=== PATIENT | female | born 1990 | race Caucasian/White ===

== ENCOUNTER → 2019-06-29 | Outpatient (CLI) | payer BC ==
--- NOTE | 2019-06-29 12:46 | KCIC ---
EXAM: Obstetrics sonogram. HISTORY: anatomy survey. TECHNIQUE: Sonographic imaging of a gravid uterus was performed. COMPARISON: None. FINDINGS: There is a single intrauterine fetus in cephalic presentation with a heart rate of 150 bpm. There is normal body motion. The stomach, kidneys, bladder, spine, brain, facial profile and extremities and heart are unremarkable. There is a three-vessel umbilical cord with normal insertion. The cervix is closed and measures 4.4 cm in length. The amniotic fluid index is normal at 10.1 cm. There is an anterior placenta with a suspected accessory lobe covering the cervix. The biparietal diameter is 4.06 cm, corresponding with 18 weeks and 2 days. The head circumference is 16.46 cm, corresponding with 19 weeks and 1 day. The abdominal circumference is 13.97 cm, corresponding with 19 weeks and 3 days. The femoral length is 2.87 cm, corresponding with 18 weeks and 6 days. The estimated gestational age patient combined ultrasound measurements is 19 weeks and 0 days and the estimated weight is 273 g. The estimated due date is 11/23/2019. IMPRESSION: 1. Single intrauterine fetus in cephalic presentation with a heart rate of 150 bpm and gestational age based on ultrasound measurements of 19 weeks and 0 days. The anatomy is grossly unremarkable. 2. Suspected total placenta previa due to an accessory placental lobe. Short-term sonographic follow-up is recommended. Electronically signed by: Venice Dsouza MD (06/29/2019 12:44 PM) [facility]
== END | disposition home or self-care (01) ==
LOC: KCIC US 09:56
PROVIDERS: ATTEND Obstetrics & Gynecology
DX: O09.92 Supervision of high risk pregnancy, unspecified, second trimester (principal); O26.842 Uterine size-date discrepancy, second trimester; Z3A.19 19 weeks gestation of pregnancy
CPT/HCPCS: 76805; 76817

== ENCOUNTER 2019-12-23 09:04 | Day surgery (SDC) | payer BC, MEDICAID ==
[~2019-12-23 09:04] MED LIST: BUPIVACAINE-EPI 0.25%-1:200000 MPF 30 ML VIAL. ONE; HYDROmorphone 2 MG/ML VIAL IV PRN; IV RINGERS,LACTATED 1000ML 1,000 ML IV SCH; MORPHINE SULFATE 2 MG/ML VIAL. IV PRN; ONDANSETRON PF 4 MG/2 ML VIAL. IV PRN; PROCHLORPERAZINE 10 MG/2 ML VIAL. IV PRN; fentaNYL PF VIAL 100 MCG/2 ML VIAL IV PRN
[2019-12-23] MEDS ORDERED: ONDANSETRON PF 4 MG/2 ML VIAL. ONE (10:33)
[2019-12-23] MEDS ORDERED: DEXAMETHASONE SOD PHOS 4 MG/ML VIAL ONE (10:33)
[2019-12-23] MEDS ORDERED: PROPOFOL 20 ML IV ONE (10:33)
[2019-12-23] MEDS ORDERED: LIDOCAINE 2% PF 5 ML VIAL. ONE (10:33)
[2019-12-23] MEDS ORDERED: KETOROLAC 30 MG/ML VIAL. ONE (10:33)
[2019-12-23] MEDS ORDERED: NEOSTIGMINE METHYLSULFATE 5 MG/5 ML SYRINGE. ONE (10:34)
[2019-12-23] MEDS ORDERED: MIDAZOLAM HCL/PF 2 MG/2 ML VIAL. ONE (10:34)
[2019-12-23] MEDS ORDERED: fentaNYL PF VIAL 250 MCG/5 ML VIAL ONE (10:34)
[2019-12-23] MEDS ORDERED: GLYCOPYRROLATE 1 MG/5 ML VIAL. ONE (10:34)
[2019-12-23] MEDS ORDERED: ROCURONIUM 50 MG/5 ML VIAL. ONE (10:36)
[2019-12-23] MEDS ORDERED: SEVOFLURANE 31 TO 60 MINUTES. IH ONE (12:07)
--- NOTE | 2019-12-23 12:08 | PDOC ---
BRIEF OPERATIVE NOTE Date: Dec 23, 2019 Pre-Op Diagnosis Sterilization Post-Op Diagnosis SAme Procedure Performed LPSC BTL with distal salpingectomy Surgeon Dr. Kate Anesthesia Type: General Blood Loss 5 ml Specimens Obtained hima. fallopian tubes Findings nml size uterus, nml fallopian tubes and ovaries hima. Complications none Operative Note see dictation MARJ KATE Jr, MD Dec 23, 2019 12:08
--- NOTE | 2019-12-23 12:10 | DISCH ---
DISCHARGE INSTRUCTIONS Condition on Discharge Condition on Discharge: Stable Activity After Discharge Activity Instructions for Disc: Activity as tolerated Lifting Instructions after Dis: No heavy lifting Driving Instructions after Dis: Do not drive today Diet after Discharge Diet after Discharge: Regular Contacting the DRJessica after DC Call your doctor for: Concerns you may have Follow-Up Follow up with: Dr. Kate in 1 week. MARJ KATE Jr, MD Dec 23, 2019 12:10
--- NOTE | 2019-12-23 12:17 | OP ---
DATE OF SURGERY: PREOPERATIVE DIAGNOSIS: Sterilization. POSTOPERATIVE DIAGNOSIS: Sterilization. PROCEDURE: Laparoscopic BTL with distal salpingectomy. SURGEON: Rich Kate MD ANESTHESIA: GETA. ESTIMATED BLOOD LOSS: 5 mL. COMPLICATIONS: None. FINDINGS: Normal size uterus, normal fallopian tubes and ovaries bilaterally. SUMMARY: A 29-year-old female who desires permanent sterilization. She was counseled on the risks, benefits and expectations as well as the failure rate and voiced clear understanding to proceed. DESCRIPTION OF PROCEDURE: The patient was taken to surgery suite and placed in dorsal lithotomy position. She was prepped with Betadine solution for vaginal prep and ChloraPrep for abdominal prep. After adequate anesthesia, small transverse skin incision was made just below the umbilicus. The Veress needle was then placed through the infraumbilical incision site. The abdomen was allowed to insufflate up to 1-1/2 liters CO2 gas. The Veress needle was then removed, 5 mm trocar was placed. The camera was placed. The uterus appeared normal. Fallopian tubes and ovaries appeared normal bilaterally. Two additional incisions made in the left lower quadrant in which a 5 mm and 8-mm port were placed. With aid of graspers and EnSeal device, the right distal fallopian tube was removed. Same process took place with left adnexa. There was good hemostasis of the pedicles. The trocars were then removed under direct visualization. Abdomen was allowed to deflate as much as possible along with mechanical manipulation. The three skin incisions were reapproximated using 4-0 Vicryl suture in subcuticular manner. A 0.25% Marcaine with epinephrine was injected at each incision site. Uterine acorn manipulator and single tooth tenaculum were removed. The patient tolerated the procedure well and was taken to recovery room in stable condition. Sponge and needle count correct x 3. RICH KATE MD DR: LIDA/kit JOB#: [id number] / [id number]
[2019-12-23] MEDS ORDERED: OXYC-325 PO (12:19)
[2019-12-23] MEDS ORDERED: oxyCODONE/APAP 5/325 1 TAB TABLET PO ONE ×2 (12:30)
[2019-12-23 13:40] VITALS: BP 110/63
--- NOTE | 2019-12-24 13:07 | PATHOLOGY ---
[facility] Accession Number: [id number] . 01 Material submitted: . PART A: fallopian tube - RIGHT FALLOPIAN TUBE. Modifiers: right PART B: fallopian tube - LEFT FALLOPIAN TUBE. Modifiers: left . 01 Clinical history: . None provided . 02 Diagnosis: A. Right tubal ligation: - Segment of fallopian tube confirmed. . B. Left tubal ligation: - Segment of fallopian tube confirmed. (JPM/db; 12/24/2019) LBQ 12/24/2019 1213 Local . 02 Electronically signed: . Ricky Barbosa MD, Pathologist NPI- [id number] . 01 Gross description: . A. The specimen is received in formalin, labeled "Shaniqua Ausmus, right fallopian tube". Received is a fimbriated fallopian tube measuring 4.2 cm in length by 0.5 cm in diameter. The serosal surface is pink-cardoso to pink-purple and glistening in appearance. Sectioning reveals a patent lumen. The specimen is submitted representatively in cassette A1. . B. The specimen is received in formalin, labeled "Shaniqua Ausmus, left fallopian tube". Received is a fimbriated fallopian tube measuring 4.1 cm in length by 0.5 cm in diameter. The serosal surface is pink-purple and glistening in appearance. Sectioning reveals a patent lumen. The specimen is submitted representatively in cassette B1. (CAA; 12/23/2019) QAC/QA 12/23/2019 1807 Local . 02 Pathologist provided ICD-10: Z30.2 . 02 CPT . 846222, [id number] Specimen Comment: A courtesy copy of this report has been sent to [phone] Specimen Comment: Report sent to Performed at: [address] [facility] [address], [place], [place] [id number] MD Wing Clayton MD Phone: [phone] Performed at: 02 [facility] [address], [place] [id number] MD Ricky Barbosa MD Phone: [phone]
== END 2019-12-23 14:15 | disposition home health service (06) ==
LOC: SURG 09:04
PROVIDERS: ATTEND Obstetrics & Gynecology
DX: Z30.2 Encounter for sterilization (principal); Z72.89 Other problems related to lifestyle
CPT/HCPCS: 58670; 81025; 88302; A7015; J1100; J1885; J2001; J2250; J2405; J2704; J2710; J3010; J3490